=== PATIENT | male | born 1990 | race Caucasian/White ===

== ENCOUNTER 2022-12-26 18:27 | Emergency (ER) | payer OTHER, SELFPAY ==
[2022-12-26 18:42] VITALS: BP 147/86; PULSE 96; RESP 16; TEMP 37.2; O2SAT 99
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
== END 2022-12-26 19:05 | disposition home or self-care (01) ==
PROVIDERS: Emergency Provider Nurse Practitioner Family
DX: J02.9 Acute pharyngitis, unspecified (principal); K02.9 Dental caries, unspecified; K21.9 Gastro-esophageal reflux disease without esophagitis
CPT/HCPCS: 87081; 87880; 99203; G0463